=== PATIENT | male | born 1975 | race Caucasian/White ===

== ENCOUNTER → 2020-07-10 10:10 | Outpatient (BNVA) | payer OTHER, SELFPAY | PROVIDERS: Referring Provider Family Medicine; Visit Provider Orthopaedic Surgery | DX: S46.211A Strain of muscle, fascia and tendon of other parts of biceps, right arm, initial encounter (principal); X58.XXXA Exposure to other specified factors, initial encounter | CPT/HCPCS: 73030 ==

== ENCOUNTER 2020-09-22 12:38 | Outpatient (CLI) | payer OTHER, SELFPAY ==
--- NOTE | 2020-09-22 13:00 | IR_ITS ---
WS: [id number] RIGHT SHOULDER ARTHROGRAM UNDER FLUOROSCOPY. PRIOR TO MRI EVALUATION. HISTORY: CHRONIC RIGHT SHOULDER PAIN COMPARISON: None available. FLUOROSCOPY TIME: 0.5 minutes. Procedure, risks and complications were explained to the patient. Consent has been obtained. Under fluoroscopic guidance the skin is marked over the medial superior third of the humeral head, cl eansed with ChloraPrep and anesthetized with lidocaine. 22-gauge spinal needle is inserted to the cor lina of the humeral head. Test injection with Omnipaque reveals the needle is appropriately positioned in the joint. A mixture of 10 cc sterile saline, 5 cc Omnipaque and 0.1 mmol gadolinium are injected under fluoroscopic guidance. Patient tolerated the joint distention well. No complications. Good injection of the RIGHT shoulder joint with contrast. IR/IR arthrogram shoulderRT [id number] IMPRESSION: Uncomplicated RIGHT shoulder joint injection prior to MRI.
--- NOTE | 2020-09-22 13:00 | MR_ITS ---
WS: [id number] MRI RIGHT SHOULDER ARTHROGRAM HISTORY: CHRONIC RIGHT SHOULDER PAIN COMPARISON: None available. TECHNIQUE: Pre and postcontrast imaging. Gadolinium mixture was injected under fluoroscopy. Coronal T 1 fat sat, sagittal T2 fat sat, coronal T2 fat sat, axial proton density, axial T1 nonfat saturation and ABER sagittal T1 fat sat views are submitted. Prearthrogram: Abnormal appearance to the biceps tendon. Torn biceps tendon is no longer visualized a t the bicipital groove. Small amount of fluid at the bicipital groove. Fluid is noted extending along the anterior proximal humerus along the biceps tendon sheath. Small joint effusion. Post arthrogram: Very small insertion site tear of the supraspinatus. Increased contrast extends into the subacromial and subdeltoid bursa. There is mild tendinopathy in the distal supraspinatus. No mus ban atrophy. RIGHT middle glenohumeral ligament is redundant. There is a very small amount of contras t extending through the base of the superior labrum. Increased contrast extends along the biceps tend on sheath from a known biceps tendon tear. Visualized extracapsular portion of the biceps tendon is e nlarged and contains increased signal. MR/MR shoulder RT wo/w con [id number] IMPRESSION: 1. Biceps tendon is torn and dislocated from the bicipital groove. 2. Very tiny insertion site tear of the distal supraspinatus tendon. 3. Simple tear along the base of the superior labrum.
[2020-09-22] MEDS: iohexol 300 mg/mL 50 mL Btl INTRA-ARTI (14:08)
== END 2020-09-22 12:39 | disposition home or self-care (01) ==
PROVIDERS: Visit Provider Orthopaedic Surgery Sports Medicine
DX: M25.511 Pain in right shoulder (principal); G89.29 Other chronic pain; S43.431A Superior glenoid labrum lesion of right shoulder, initial encounter; S46.211A Strain of muscle, fascia and tendon of other parts of biceps, right arm, initial encounter; X58.XXXA Exposure to other specified factors, initial encounter
CPT/HCPCS: 23350; 73223; 77002; Q9967

== ENCOUNTER 2022-08-19 16:17 | Outpatient (CLI) | payer MEDICAID, SELFPAY ==
--- NOTE | 2022-08-19 | US_ITS ---
WS: [id number] ULTRASOUND SOFT TISSUES LEFT antecubital fossa. HISTORY: Biceps Muscle Strain COMPARISON: None available. TECHNIQUE: 2-D and color Doppler imaging is submitted. Ultrasound is directed to the antecubital fossa. No soft tissue mass or inflammatory process in the a ntecubital fossa. Biceps tendon is not identified. US/US soft tissue/extremity [id number] IMPRESSION: No ultrasound abnormality in the antecubital fossa.
== END 2022-08-19 16:18 | disposition home or self-care (01) ==
PROVIDERS: PCP Family Medicine; Visit Provider Nurse Practitioner Family
DX: S46.212A Strain of muscle, fascia and tendon of other parts of biceps, left arm, initial encounter (principal); X58.XXXA Exposure to other specified factors, initial encounter; Z87.828 Personal history of other (healed) physical injury and trauma
CPT/HCPCS: 76882

== ENCOUNTER → 2024-05-29 09:17 | Outpatient (BNVA) | payer OTHER, SELFPAY | PROVIDERS: PCP Family Medicine; Visit Provider Psychiatry & Neurology Psychiatry | DX: F43.12 Post-traumatic stress disorder, chronic (principal) | CPT/HCPCS: 80061; 83036 ==

== ENCOUNTER 2024-07-26 08:57 | Outpatient (CLI) | payer MEDICAID, SELFPAY ==
[2024-05-30 10:48] VITALS: BP 141/81; BMI 36.3
[2024-07-26 09:51] LABS: Alanine Aminotransferase 27 U/L (0-41); Albumin Level 4.2 g/dL (3.5-5.2); Alkaline Phosphatase 91 U/L (40-130); Anion Gap 16.9 (5-19); Aspartate Amino Transferase 23 U/L (0-40); Blood Urea Nitrogen 14 mg/dL (6-20); Calcium 9.7 mg/dL (8.5-10.5); Carbon Dioxide 23 mmol/L (22-29); Chloride 103 mmol/L (98-107); Globulin 3.1 g/dL (1.3-4.6); Glomerular Filtration Rate 102.3 mL/min (90-130); Glucose 181 mg/dL (65-115); Osmolality Calculated 293 mOsm/kg (285-295); Potassium 3.9 mmol/L (3.5-5.1); Sodium 139 mmol/L (136-145); Total Bilirubin 0.5 mg/dL (0.15-1.2); Total Protein 7.3 g/dL (6.6-8.7)
== END 2024-07-26 08:58 | disposition home or self-care (01) ==
LOC: LAB 08:58
PROVIDERS: PCP Nurse Practitioner Family; Visit Provider Podiatrist Foot & Ankle Surgery
DX: B35.1 Tinea unguium (principal)
CPT/HCPCS: 36415; 80053

== ENCOUNTER → 2024-08-21 11:30 | Outpatient (BNVA) | payer OTHER, SELFPAY ==
[2024-05-30 10:48] VITALS: BP 141/81; BMI 36.3
== END ==
PROVIDERS: PCP Nurse Practitioner Family; Visit Provider Podiatrist Foot & Ankle Surgery
DX: B35.1 Tinea unguium (principal)
CPT/HCPCS: 36415; 80053

== ENCOUNTER → 2024-09-11 14:51 | Outpatient (BNVA) | payer MEDICAID, SELFPAY ==
[2024-05-30 10:48] VITALS: BP 141/81; BMI 36.3
== END ==
PROVIDERS: PCP Nurse Practitioner Family; Visit Provider Podiatrist Foot & Ankle Surgery
DX: M79.671 Pain in right foot (principal); B35.1 Tinea unguium; L60.8 Other nail disorders; L60.3 Nail dystrophy; S90.221A Contusion of right lesser toe(s) with damage to nail, initial encounter; X58.XXXA Exposure to other specified factors, initial encounter; E11.9 Type 2 diabetes mellitus without complications; Z79.84 Long term (current) use of oral hypoglycemic drugs
CPT/HCPCS: 73630; 99214

== ENCOUNTER → 2024-09-18 11:00 | Outpatient (BNVA) | payer MEDICAID, SELFPAY ==
[2024-05-30 10:48] VITALS: BP 141/81; BMI 36.3
== END ==
PROVIDERS: PCP Nurse Practitioner Family; Visit Provider Podiatrist Foot & Ankle Surgery
DX: M79.671 Pain in right foot (principal); M84.374A Stress fracture, right foot, initial encounter for fracture; X58.XXXA Exposure to other specified factors, initial encounter; Z79.84 Long term (current) use of oral hypoglycemic drugs
CPT/HCPCS: 73630